=== PATIENT | female | born 1990 | race Caucasian/White ===

== ENCOUNTER 2016-05-25 22:09 | Emergency (ER) | payer OTHER ==
[2016-05-25] MEDS ORDERED: SODIUM CHLORIDE 0.9% 1,000 ML IV STA (22:31)
[2016-05-25 22:46] LABS: Basophils # (A) 0.1 k/uL (0-0.2); Basophils % (A) 1 %; CH 32.4; CHCM 32.1; Eosinophils # (A) 0.6 k/uL (0-0.7); Eosinophils % (A) 5 %; HDW 2.03; HGB 12.9 gm/dL (11.4-16.0); Luc # (Auto) 0.23; Luc % (Auto) 2; Lymphocytes # (A) 3.5 k/uL (1.0-4.8); Lymphocytes % (A) 34 %; MCH 32.7 pg (25.0-35.0); MCHC 32.3 g/dL (31.0-37.0); MCV 101.1 fL (80.0-100.0); Mean Platelet Volume 7.7; Monocytes # (A) 0.5 k/uL (0-1.0); Monocytes % (A) 4 %; Neutrophils # (A) 5.7 k/uL (1.3-7.7); Neutrophils % (A) 54 %; RBC 3.96 m/uL (3.80-5.40); RDW 12.6 % (11.5-15.5); WBC 10.5 k/uL (3.8-10.6); WBC (Perox) 10.98
[2016-05-25 22:54] LABS: HCG,Qualitative Serum Not Detected
[2016-05-25 22:55] LABS: Amorphous Sediment,Urine Occasional /hpf; Appearance,Urine Cloudy (Clear); Bacteria,Urine Rare /hpf; Bilirubin,Urine Negative (Negative); Glucose,Urine (UA) Negative (Negative); Ketones,Urine Trace (Negative); Leukocyte Esterase,Urine Negative (Negative); Mucus,Urine Many /hpf; Nitrite,Urine Negative (Negative); PH, Urine 5.5 (5.0-8.0); Particle Count 14524; Protein,Urine 1+ (Negative); RBC,Urine 4 /hpf (0-5); Specific Gravity,Urine 1.015 (1.001-1.035); Squamous Epithelial Cell,Urine 6 /hpf (0-4); UA Billing (MACRO vs. MICRO) MICRO; Urobilinogen,Urine <2.0 mg/dL (<2.0); WBC,Urine 3 /hpf (0-5)
[2016-05-25 22:56] LABS: Anion Gap 15 mmol/L; Blood Urea Nitrogen 9 mg/dL (7-17); Calcium 9.1 mg/dL (8.4-10.2); Carbon Dioxide 16 mmol/L (22-30); Chloride 106 mmol/L (98-107); Glucose 133 mg/dL (74-99); Non-African American GFR(MDRD) >60 (>60 ml/min/1.73 sqM); Potassium 3.9 mmol/L (3.5-5.1); Sodium 137 mmol/L (137-145)
--- NOTE | 2016-05-25 23:02 | ED ---
Seizure HPI - General Chief Complaint: Seizure Stated Complaint: poss seizure Time Seen by Provider: 05/25/16 22:22 Source: patient, EMS Mode of arrival: EMS - History of Present Illness Initial Comments: This 26-year-old white female presents with father with a complaint of a seizure. This apparently was witnessed by the father and it apparently lasted 3 minutes. She apparently was clenching her arms and legs and was unconscious during this episode. She apparently had one seizure last year. She had followed up with neurology afterwards and they were unsure of the exact cause. She apparently did bite her tongue minimally tonight and complains of some minimal pain. She is back to normal mentation at this time without any other complaints. She apparently does utilize Xanax for her anxiety. The mother apparently related to the paramedics that she abuses the Xanax. She also takes marijuana and took 2 tramadol tonight for a headache. She states that this was from an old prescription. She denies taking it regularly. She denies any other drug abuse. No other modifying factors. She does not take any antiseizure medications. - Related Data Home Medications Medication Instructions Recorded Confirmed ALPRAZolam [Xanax] 1 mg PO DAILY PRN 05/25/16 05/25/16 Aspirin/Acetaminophen/Caffeine 1 tab PO BID PRN 05/25/16 05/25/16 [Excedrin Migraine Caplet] Sertraline [Zoloft] 50 mg PO DAILY 05/25/16 05/25/16 traMADol HCL [Ultram] 50 mg PO DAILY PRN 05/25/16 05/25/16 Allergies Allergy/AdvReac Type Severity Reaction Status Date / Time promethazine HCl Allergy Hallucinati Verified 05/25/16 22:37 [From Phenergan] ons Review of Systems ROS Statement: Those systems with pertinent positive or pertinent negative responses have been documented in the HPI. ROS Other: All systems not noted in ROS Statement are negative. Past Medical History Past Medical History: Hyperlipidemia History of Any Multi-Drug Resistant Organisms: None Reported Past Surgical History: No Surgical Hx Reported Past Psychological History: Anxiety, Depression Smoking Status: Current every day smoker Past Alcohol Use History: Occasional Past Drug Use History: Marijuana General Exam - General Exam Comments Initial Comments: GENERAL: The patient is well nourished and well hydrated. VITAL SIGNS: Heart rate, blood pressure, respiratory rate reviewed as recorded in nurse's notes. EYES: Pupils are round and reactive. Extraocular movements are intact. No conjunctival / lid redness or swelling. ENT: No external evidence of injury, swelling, or ecchymosis. Airway is patent. Throat is clear. There are mild tongue abrasions bilaterally. NECK: Nontender. No swelling or evidence of injury. No subcutaneous emphysema. Trachea is midline. No thyroid mass. HEART: There is a tachycardic heart rate. Normal rhythm. Good peripheral pulses. LUNGS/CHEST: Breath sounds clear and equal bilaterally. No rales, rhonchi, or wheezes. No ecchymosis, subcutaneous emphysema, or tenderness. ABDOMEN: Abdomen soft without tenderness. No palpable masses or organomegaly. No peritoneal signs. No abdominal wall swelling or ecchymosis. EXTREMITIES: No extremity tenderness. Normal muscle tone and function. No thoracolumbar tenderness. NEUROLOGIC: Sensation is grossly intact. Cranial nerve exam reveals face is symmetrical, tongue is midline, speech is clear. SKIN: No abrasions or ecchymosis is noted. No induration or masses noted. PSYCHIATRIC: Alert and oriented. Appears anxious. Course Vital Signs 05/25/16 05/25/16 22:29 22:48 Temperature 98.1 F Pulse Rate 125 H 110 H Respiratory 18 18 Rate Blood Pressure 103/62 103/62 O2 Sat by Pulse 98 98 Oximetry Medical Decision Making - Medical Decision Making The patient was seen and examined. All diagnostics were reviewed. She was hydrated. Her laboratory came back showing a decreased CO2 at 16 consistent with dehydration. The remainder of the laboratories essentially within normal limits. She is back to her current normal mental status. It is felt as though she is stable for discharge. She does relate that her appetite has been decreased over the last month or so since she started Zoloft. She is instructed to follow-up with her primary doctor to see if this medicine should be changed. It is felt as though her seizures feeling may be related to taking the Ultram today. She is instructed to avoid this medication for the rest of her life. It is felt as though this is seizure provoking. She is counseled regarding seizures and thinks to avoid such as driving and the like. It is also felt as though she may benefit from following up with a neurologist again. She states that his been several years since she saw a neurologist. She is also counseled regarding Xanax use versus abuse. She is counseled regarding fluid hydration and leaves in no identifiable distress. - Lab Data Result diagrams: 05/25/16 22:25 05/25/16 22:25 Lab Results 05/25/16 05/25/16 05/25/16 Range/Units 22:25 22:25 22:36 WBC 10.5 (3.8-10.6) k/uL RBC 3.96 (3.80-5.40) m/uL Hgb 12.9 (11.4-16.0) gm/dL Hct 40.0 (34.0-46.0) % MCV 101.1 H (80.0-100.0) fL MCH 32.7 (25.0-35.0) pg MCHC 32.3 (31.0-37.0) g/dL RDW 12.6 (11.5-15.5) % Plt Count 253 (150-450) k/uL Neutrophils % 54 % Lymphocytes % 34 % Monocytes % 4 % Eosinophils % 5 % Basophils % 1 % Neutrophils # 5.7 (1.3-7.7) k/uL Lymphocytes # 3.5 (1.0-4.8) k/uL Monocytes # 0.5 (0-1.0) k/uL Eosinophils # 0.6 (0-0.7) k/uL Basophils # 0.1 (0-0.2) k/uL Sodium 137 (137-145) mmol/L Potassium 3.9 (3.5-5.1) mmol/L Chloride 106 (98-107) mmol/L Carbon Dioxide 16 L (22-30) mmol/L Anion Gap 15 mmol/L BUN 9 (7-17) mg/dL Creatinine 0.75 (0.52-1.04) mg/dL Est GFR (MDRD) Af Amer >60 (>60 ml/min/1.73 sqM) Est GFR (MDRD) Non-Af >60 (>60 ml/min/1.73 sqM) Glucose 133 H (74-99) mg/dL Calcium 9.1 (8.4-10.2) mg/dL HCG, Qual Not Detected Urine Color Yellow Urine Appearance Cloudy H (Clear) Urine pH 5.5 (5.0-8.0) Ur Specific [place] 1.015 (1.001-1.035) Urine Protein 1+ H (Negative) Urine Glucose (UA) Negative (Negative) Urine Ketones Trace H (Negative) Urine Blood Negative (Negative) Urine Nitrate Negative (Negative) Urine Bilirubin Negative (Negative) Urine Urobilinogen <2.0 (<2.0) mg/dL Ur Leukocyte Esterase Negative (Negative) Urine RBC 4 (0-5) /hpf Urine WBC 3 (0-5) /hpf Ur Squamous Epith Cells 6 H (0-4) /hpf Amorphous Sediment Occasional H (None) /hpf Urine Bacteria Rare H (None) /hpf Hyaline Casts 11 H (0-2) /lpf Urine Mucus Many H (None) /hpf Urine Opiates Screen Not Detected (NotDetected) Ur Oxycodone Screen Not Detected (NotDetected) Urine Methadone Screen Not Detected (NotDetected) Ur Propoxyphene Screen Not Detected (NotDetected) Ur Barbiturates Screen Not Detected (NotDetected) U Tricyclic Antidepress Not Detected (NotDetected) Ur Phencyclidine Scrn Not Detected (NotDetected) Ur Amphetamines Screen Not Detected (NotDetected) U Methamphetamines Scrn Not Detected (NotDetected) U Benzodiazepines Scrn Detected H (NotDetected) Urine Cocaine Screen Not Detected (NotDetected) U Marijuana (THC) Screen Detected H (NotDetected) Disposition Clinical Impression: Seizure, Dehydration, Abrasion of tongue Disposition: HOME SELF-CARE Condition: Good Instructions: Recurrent Seizures in Adults (ED), Dehydration (ED) Referrals: Tae Dial MD [Primary Care Provider] - 1-2 days Dilma Veras MD [STAFF PHYSICIAN] - 1-2 days Time of Disposition: 23:43
[2016-05-25 23:42] VITALS: BP 95/66; PULSE 80; RESP 16; TEMP 98.5
--- NOTE | 2016-05-25 23:53 | ED ---
Medical Decision Making - Lab Data Result diagrams: 05/25/16 22:25 05/25/16 22:25 Lab Results 05/25/16 05/25/16 05/25/16 Range/Units 22:25 22:25 22:36 WBC 10.5 (3.8-10.6) k/uL RBC 3.96 (3.80-5.40) m/uL Hgb 12.9 (11.4-16.0) gm/dL Hct 40.0 (34.0-46.0) % MCV 101.1 H (80.0-100.0) fL MCH 32.7 (25.0-35.0) pg MCHC 32.3 (31.0-37.0) g/dL RDW 12.6 (11.5-15.5) % Plt Count 253 (150-450) k/uL Neutrophils % 54 % Lymphocytes % 34 % Monocytes % 4 % Eosinophils % 5 % Basophils % 1 % Neutrophils # 5.7 (1.3-7.7) k/uL Lymphocytes # 3.5 (1.0-4.8) k/uL Monocytes # 0.5 (0-1.0) k/uL Eosinophils # 0.6 (0-0.7) k/uL Basophils # 0.1 (0-0.2) k/uL Sodium 137 (137-145) mmol/L Potassium 3.9 (3.5-5.1) mmol/L Chloride 106 (98-107) mmol/L Carbon Dioxide 16 L (22-30) mmol/L Anion Gap 15 mmol/L BUN 9 (7-17) mg/dL Creatinine 0.75 (0.52-1.04) mg/dL Est GFR (MDRD) Af Amer >60 (>60 ml/min/1.73 sqM) Est GFR (MDRD) Non-Af >60 (>60 ml/min/1.73 sqM) Glucose 133 H (74-99) mg/dL Calcium 9.1 (8.4-10.2) mg/dL HCG, Qual Not Detected Urine Color Yellow Urine Appearance Cloudy H (Clear) Urine pH 5.5 (5.0-8.0) Ur Specific [place] 1.015 (1.001-1.035) Urine Protein 1+ H (Negative) Urine Glucose (UA) Negative (Negative) Urine Ketones Trace H (Negative) Urine Blood Negative (Negative) Urine Nitrate Negative (Negative) Urine Bilirubin Negative (Negative) Urine Urobilinogen <2.0 (<2.0) mg/dL Ur Leukocyte Esterase Negative (Negative) Urine RBC 4 (0-5) /hpf Urine WBC 3 (0-5) /hpf Ur Squamous Epith Cells 6 H (0-4) /hpf Amorphous Sediment Occasional H (None) /hpf Urine Bacteria Rare H (None) /hpf Hyaline Casts 11 H (0-2) /lpf Urine Mucus Many H (None) /hpf Urine Opiates Screen Not Detected (NotDetected) Ur Oxycodone Screen Not Detected (NotDetected) Urine Methadone Screen Not Detected (NotDetected) Ur Propoxyphene Screen Not Detected (NotDetected) Ur Barbiturates Screen Not Detected (NotDetected) U Tricyclic Antidepress Not Detected (NotDetected) Ur Phencyclidine Scrn Not Detected (NotDetected) Ur Amphetamines Screen Not Detected (NotDetected) U Methamphetamines Scrn Not Detected (NotDetected) U Benzodiazepines Scrn Detected H (NotDetected) Urine Cocaine Screen Not Detected (NotDetected) U Marijuana (THC) Screen Detected H (NotDetected) Disposition Clinical Impression: Seizure, Dehydration, Abrasion of tongue Disposition: HOME SELF-CARE Condition: Good Instructions: Dehydration (ED), Recurrent Seizures in Adults (ED) Prescriptions: Ondansetron [Zofran ODT] 8 mg PO Q8HR PRN #20 tab PRN Reason: Nausea Referrals: Tae Dial MD [Primary Care Provider] - 1-2 days Dilma Veras MD [STAFF PHYSICIAN] - 1-2 days
== END 2016-05-25 23:55 | disposition home or self-care (01) ==
LOC: EC 22:09
DX: R56.9 Unspecified convulsions (principal); E86.0 Dehydration; S00.512A Abrasion of oral cavity, initial encounter; X58.XXXA Exposure to other specified factors, initial encounter; F41.9 Anxiety disorder, unspecified; F32.9 Major depressive disorder, single episode, unspecified; F12.90 Cannabis use, unspecified, uncomplicated; F11.90 Opioid use, unspecified, uncomplicated; Z79.899 Other long term (current) drug therapy; Z88.8 Allergy status to other drugs, medicaments and biological substances; F17.200 Nicotine dependence, unspecified, uncomplicated
CPT/HCPCS: 36415; 80048; 80306; 81001; 84703; 85025; 96360; 99285

== ENCOUNTER 2019-01-03 00:37 | Emergency (ER) | payer OTHER ==
[2019-01-03 00:49] VITALS: RESP 18
[2019-01-03] MEDS ORDERED: KETOROLAC 30 MG/ML 1 ML VIAL IM STA (00:59)
[2019-01-03] MEDS ORDERED: HYDROcodone/APAP 5-325MG 1 EACH TAB PO STA (01:00)
--- NOTE | 2019-01-03 01:35 | XR ---
History: ITS.REASON XR Reason: Pain Exam: XR RIGHT WRIST 3 views Comparison: None available FINDINGS: Acute distal radius metaphysis fracture enters the distal radial ulnar joint without dislocation. Dorsal impaction and volar distraction results in approximately 20 of dorsal angulation of the distal fragment. Soft tissue swelling, deformity. IMPRESSION: Acute distal radius metaphysis fracture enters the distal radial ulnar joint without dislocation. Dorsal impaction and volar distraction results in approximately 20 of dorsal angulation/tilt of the distal fragment. Soft tissue swelling, deformity.
[2019-01-03] MEDS ORDERED: IBUPROFEN 600 MG STARTER PACK 4 TAB BTL PO STA (01:52)
[2019-01-03] MEDS ORDERED: ACET/COD 300 MG/30 MG STARTER PACK 6 TAB BTL PO STA (01:52)
--- NOTE | 2019-01-03 01:52 | ED ---
Upper Extremity HPI - General Chief Complaint: Extremity Injury, Upper Stated Complaint: wrist injury Time Seen by Provider: 01/03/19 00:56 Source: patient Mode of arrival: ambulatory Limitations: no limitations - History of Present Illness Initial Comments: 28-year-old female patient presents to the emergency department today for evaluation of right wrist pain. Patient states approximately 5 hours ago she was playing with some kittens when she over stepped to avoid stepping on one and fell backwards. Patient states she reached her hand out behind her injuring the wrist. Patient states she did try to wrap it with an inder wrap and rest it, but the pain continued to worsen. She denies hitting her head or losing consciousness during the fall. She denies any other injuries. Denies previous injury to this wrist. Denies numbness or tingling to the hand. Patient denies any headache, neck pain, back pain, chest pain, shortness of breath, dizziness, weakness, abdominal pain, nausea, vomiting, or difficulties with bowel movements or urination. - Related Data Home Medications Medication Instructions Recorded Confirmed ALPRAZolam [Xanax] 1 mg PO DAILY PRN 05/25/16 01/03/19 Previous Rx's Medication Instructions Recorded Acetaminophen-Codeine 300-30mg 1 tab PO Q6H PRN #12 tablet 01/03/19 [Tylenol #3] Ibuprofen [Motrin] 600 mg PO Q8HR PRN #30 tab 01/03/19 Allergies Allergy/AdvReac Type Severity Reaction Status Date / Time promethazine HCl Allergy Hallucinati Verified 05/25/16 22:37 [From Phenergan] ons Review of Systems ROS Statement: Those systems with pertinent positive or pertinent negative responses have been documented in the HPI. ROS Other: All systems not noted in ROS Statement are negative. Past Medical History Past Medical History: Hyperlipidemia History of Any Multi-Drug Resistant Organisms: None Reported Past Surgical History: No Surgical Hx Reported Past Psychological History: Anxiety, Depression Smoking Status: Current every day smoker Past Alcohol Use History: Occasional Past Drug Use History: Marijuana General Exam Limitations: no limitations General appearance: alert, in no apparent distress, other (This is a well- developed, well-nourished adult female patient in no acute distress. Vital signs upon presentation are temperature 98.3F, pulse 94, respirations 18, blood pressure 118/69, pulse ox 100% on room air.) Eye exam: Present: normal appearance, PERRL, EOMI. Absent: scleral icterus, conjunctival injection, periorbital swelling ENT exam: Present: normal exam, normal oropharynx, mucous membranes moist Respiratory exam: Present: normal lung sounds bilaterally. Absent: respiratory distress, wheezes, rales, rhonchi, stridor Cardiovascular Exam: Present: regular rate, normal rhythm, normal heart sounds. Absent: systolic murmur, diastolic murmur, rubs, gallop, clicks GI/Abdominal exam: Present: soft, normal bowel sounds. Absent: distended, tenderness, guarding, rebound, rigid Extremities exam: Present: full ROM, tenderness (Tenderness noted over the distal radial and ulnar aspect of the right forearm.), normal capillary refill, other (There is obvious deformity noted to the right distal radius. Skin to the hand is pink, warm, dry. Cap refills less than 3 seconds. Radial pulses 2+ and equal bilaterally.). Absent: normal inspection, pedal edema, joint swelling, calf tenderness Neurological exam: Present: alert, oriented X3, CN II-XII intact Psychiatric exam: Present: normal affect, normal mood Skin exam: Present: warm, dry, intact, normal color. Absent: rash Course Vital Signs 01/03/19 01/03/19 00:46 02:45 Temperature 98.3 F 98 F Pulse Rate 94 96 Respiratory 18 18 Rate Blood Pressure 118/69 126/72 O2 Sat by Pulse 100 100 Oximetry Medical Decision Making - Medical Decision Making 28 year-old female patient presents to the emergency department today for evaluation of right wrist injury. Physical examination did reveal swelling and deformity noted over the right distal radius. Neurovascular status is intact. X-ray was obtained and did show an angulated nondisplaced fracture of the right distal radius. Patient was placed in an OCL splint. Given a sling. She was given starter packs of pain medication to take home. She is given prescriptions for pain management. She is instructed to follow-up with origination specialist for further evaluation as soon as possible. She is instructed to follow-up with her primary care physician for recheck in 1-2 days. Return parameters custody temperature verbalizes understanding and agrees with this plan. - Radiology Data Radiology results: report reviewed, image reviewed 3 views of the right wrist are obtained. Report reviewed in its entirety. Impression by Dr. Mendoza shows acute distal radius metaphysis fracture enters distal radial ulnar joint without dislocation. Dorsal impaction a volar distraction results in approximately 20 of dorsal angulation/tilt of the distal fragments. Soft tissue swelling, deformity. Disposition Clinical Impression: Fracture of right distal radius Disposition: HOME SELF-CARE Condition: Good Instructions (If sedation given, give patient instructions): Wrist Fracture in Adults (ED), Splint Care (ED) Additional Instructions: Take medication as directed for pain. Apply ice 20 minutes at a time at least 4 times daily. Keep wrist elevated. Follow up with origination specialist for further evaluation as soon as possible. Return to the emergency department immediately for any new, worsening, or concerning symptoms. Prescriptions: Ibuprofen [Motrin] 600 mg PO Q8HR PRN #30 tab PRN Reason: Pain Acetaminophen-Codeine 300-30mg [Tylenol #3] 1 tab PO Q6H PRN #12 tablet PRN Reason: Pain Is patient prescribed a controlled substance at d/c from ED?: Yes When asked, does pt state using other controlled substances?: No If prescribed controlled substance>3 days was MAPS reviewed?: Prescribed <3 Days If opioid is for acute pain is fill amount 7 days or less?: Yes If Rx opioid, was Start Talking consent form obtained?: Yes Referrals: Tae Dial MD [Primary Care Provider] - 1-2 days Uday Hill MD [STAFF PHYSICIAN] - 1-2 days Time of Disposition: 01:52
[2019-01-03 02:57] VITALS: BP 126/72; PULSE 96; TEMP 98
== END 2019-01-03 02:45 | disposition home or self-care (01) ==
LOC: EC 00:37
DX: S52.501A Unspecified fracture of the lower end of right radius, initial encounter for closed fracture (principal); F41.9 Anxiety disorder, unspecified; F32.9 Major depressive disorder, single episode, unspecified; F17.200 Nicotine dependence, unspecified, uncomplicated; Z88.8 Allergy status to other drugs, medicaments and biological substances; W01.0XXA Fall on same level from slipping, tripping and stumbling without subsequent striking against object, initial encounter; Y92.009 Unspecified place in unspecified non-institutional (private) residence as the place of occurrence of the external cause
CPT/HCPCS: 73110; 99283; 29125; 96372; L1830; J1885

== ENCOUNTER 2019-01-05 13:58 | Day surgery (SDC) | payer OTHER ==
[2019-01-05] MEDS ORDERED: LACTATED RINGERS 1,000 ML IV ONE (14:55)
[2019-01-05] MEDS ORDERED: PROPOFOL 10 MG/ML 20 ML VIAL IV ONE (16:02)
[2019-01-05] MEDS ORDERED: MIDAZOLAM 2 MG/2 ML VIAL ONE (16:02)
[2019-01-05] MEDS ORDERED: fentaNYL (PF) 50 MCG/ML 2 ML AMP ONE (16:02)
[2019-01-05] MEDS ORDERED: SUCCINYLCHOLINE CHLORIDE 100 MG/5 ML SYR IV ONE (16:02)
[2019-01-05] MEDS ORDERED: ceFAZolin 1,000 MG VIAL ONE (16:02)
[2019-01-05] MEDS ORDERED: DEXAMETHASONE SOD PHOSPHATE 4 MG/ML 1 ML VIAL ONE (16:02)
[2019-01-05] MEDS ORDERED: LIDOCAINE 1% INJ 10MG/ML (20 ML MDV) ONE (16:02)
[2019-01-05] MEDS ORDERED: ROPIVACAINE 5 MG/ML 30 ML VIAL ONE (16:02)
[2019-01-05] MEDS ORDERED: BUPIVACAIN-EPI 0.25%-1:200,000 30 ML VIAL SQ ONE ×2 (16:31→16:48)
[2019-01-05 17:13] VITALS: RESP 16; TEMP 98
--- NOTE | 2019-01-05 18:20 | XR ---
EXAMINATION TYPE: XR wrist complete RT DATE OF EXAM: 01/05/2019 COMPARISON: 01/03/2019 HISTORY: Surgery TECHNIQUE: 6 views FINDINGS: 6 fluoroscopic images were obtained and show placement of 3 pins fixing the transverse frac ture of the distal radial metaphysis in anatomic position. A total of 56 seconds of fluoroscopy time was recorded for the procedure. IMPRESSION: Satisfactory fixation. No complicating process seen. There is satisfactory reduction comp ared to exam of 01/03/2019.
--- NOTE | 2019-01-05 18:24 | P.OP ---
Date of Procedure: 01/05/19 Preoperative Diagnosis: Displaced extra-articular right distal radius fracture Postoperative Diagnosis: Displaced extra-articular right distal radius fracture Procedure(s) Performed: Closed reduction and percutaneous pinning of displaced, extra-articular right distal radius fracture (2 parts) Implants: 0.062 K-wires (3) Anesthesia: MAC, regional, local Surgeon: Logan Phillips Seam Finisher #1: Marie Diallo Estimated Blood Loss (ml): 0 Condition: stable Disposition: PACU Indications for Procedure: The patient is a 28-year-old female who sustained a displaced right distal radius fracture after stumbling to avoid stepping on her kitten. Treatment options (and associated risks and benefits) were discussed in the office. Surgical stabilization was recommended. In preop, the patient denied any additional questions or concerns and wished to proceed with surgery. Consent forms were signed. The operative site was confirmed and marked. Description of Procedure: The patient was administered a regional nerve block by the anesthesia team and was then brought to the operating suite. She was positioned supine with the operative limb on an arm board. All bony prominences were well-padded. Monitored anesthesia was administered uneventfully. Prophylactic IV antibiotics were administered. A tourniquet was placed on the right arm but was not inflated. The arm was then prepped and draped in standard, sterile fashion. A t imeout was performed, confirming patient identifiers, the operative side, the site and the procedure to be performed: all team members expressed agreement. The fracture was evaluated on multiple views using intraoperative fluoroscopy. There was moderate dorsal angulation and mild shortening of the radial column. A closed reduction maneuver was performed, using a combination of palmar translation and ulnar deviation. Repeat imaging demonstrated excellent initial alignment. A 0.062 K wire was percutaneously inserted into the radial styloid, taking care to avoid the first dorsal compartment tendons. With the fracture held reduced, this was advanced across the fracture site and into the metaphysis. A second K wire was inserted in a similar fashion for additional stabilization and rotat ional control. When assessed on imaging, there was mild residual dorsal angulation. A third K wire was inserted percutaneously dorsally, taking care to protect the extensor tendons. This was used as a joystick and good confucianism of volar tilt was achieved. This was advanced to, but not through, the volar cortex. Final x-rays were obtained which revealed anatomic reduction of the fracture. T he wrist was then stressed under live fluoroscopy - no motion was appreciated at the fracture site. The pins were cut and covered with Jurgan balls. Local anesthetic with epinephrine was injected in a ring block around the wrist for adjunctive postoperative pain control and hemostasis. A sterile dressing was applied followed by a resting volar plaster splint. All sponge, needle and instrument counts were correct at the end of the case. The patient tolerated the procedure well and was taken to the recovery room in stable condition.
[2019-01-05 18:36] VITALS: BP 115/83; PULSE 89
--- NOTE | 2019-01-06 11:50 | FL ---
Fluoroscopy INDICATION: Pain FINDINGS: Fluoroscopy time: 56 seconds. Images obtained: 0. IMPRESSIONS: 1. Documentation of fluoroscopy.
--- NOTE | 2019-01-06 12:02 | P.ANPRN ---
Procedure Note - Anesthesia - Nerve Block Performed Right Supraclavicular Single Time Out Performed: Yes Date of Procedure: 11/04/18 Procedure Start Time: 14:39 Procedure Stop Time: 14:45 Location of Patient Procedure: PreOp Indication: Acute Post-Operative Pain, Requested by Surgeon Sedation Type: Sedate with meaningful contact maintained Preparation: Sterile Prep Position: Supine Needle Types: Pajunk Needle Gauge: 21 Ultrasound used to visualize needle placement: Yes Ultrasound used to observe medication spread: Yes Injectate: 0.5% Ropivacaine (see comment for volume) (ropi .5% 25cc plus dexamethasone 4 mg) Blood Aspirated: No Pain Paresthesia on Injection Noted: No Resistance on Injection: Normal Image Stored and Saved: Yes Events: Uneventful and Well Tolerated
== END 2019-01-05 19:00 | disposition home or self-care (01) ==
LOC: OR 13:58
PROVIDERS: ATTEND Orthopaedic Surgery
DX: S52.551A Other extraarticular fracture of lower end of right radius, initial encounter for closed fracture (principal); W01.0XXA Fall on same level from slipping, tripping and stumbling without subsequent striking against object, initial encounter; F17.210 Nicotine dependence, cigarettes, uncomplicated; F41.9 Anxiety disorder, unspecified; Z79.899 Other long term (current) drug therapy; Z79.891 Long term (current) use of opiate analgesic; Z88.8 Allergy status to other drugs, medicaments and biological substances
CPT/HCPCS: 25606; 81025; 64415; 73110; J2250; J1100; J0690; J2001; J3010; J2795; J0330; J2704; 64413

== ENCOUNTER 2020-07-09 10:05 | Inpatient (IN) | payer OTHER ==
[2020-07-09] MEDS ORDERED: ONDANSETRON 4 MG/2 ML VIAL IVP STA (10:59)
[2020-07-09] MEDS ORDERED: HYDROmorphone 0.5 MG/0.5 ML SYRINGE IVP STA ×2 (10:59→11:49)
[2020-07-09] MEDS ORDERED: KETOROLAC 15 MG/ML 1 ML VIAL IVP STA (10:59)
[2020-07-09] MEDS ORDERED: SODIUM CHLORIDE 0.9% 1,000 ML IV STA (10:59)
[2020-07-09 11:18] LABS: Appearance,Urine Turbid (Clear); Bacteria,Urine Occasional /hpf; Bilirubin,Urine Negative (Negative); Blood,Urine Moderate (Negative); Color,Urine Yellow; Glucose,Urine (UA) Negative (Negative); Hyaline Casts,Urine 11 /lpf (0-2); Ketones,Urine Trace (Negative); Leukocyte Esterase,Urine Large (Negative); Mucus,Urine Many /hpf; Nitrite,Urine Positive (Negative); PH, Urine 5.5 (5.0-8.0); Protein,Urine 2+ (Negative); RBC,Urine 40 /hpf (0-5); Specific Gravity,Urine 1.024 (1.001-1.035); Squamous Epithelial Cell,Urine 10 /hpf (0-4); Urobilinogen,Urine <2.0 mg/dL (<2.0); WBC,Urine >182 /hpf (0-5)
[2020-07-09 11:19] LABS: Basophils # (A) 0.1 k/uL (0-0.2); Basophils % (A) 0 %; Eosinophils # (A) 0.4 k/uL (0-0.7); Eosinophils % (A) 2 %; HCT 42.5 % (34.0-46.0); HGB 13.6 gm/dL (11.4-16.0); Lymphocytes # (A) 1.4 k/uL (1.0-4.8); Lymphocytes % (A) 7 %; MCH 32.2 pg (25.0-35.0); MCV 100.4 fL (80.0-100.0); Mean Platelet Volume 7.7; Monocytes % (A) 5 %; Neutrophils # (A) 17.1 k/uL (1.3-7.7); Neutrophils % (A) 86 %; Platelet Count 234 k/uL (150-450); RBC 4.24 m/uL (3.80-5.40); RDW 13.3 % (11.5-15.5)
[2020-07-09] MEDS ORDERED: SODIUM CHLORIDE 0.9% 1,000 ML IV ONE (11:28)
[2020-07-09 11:32] LABS: ALT 20 U/L (4-34); AST 37 U/L (14-36); African American GFR (CKD) >90 (>60 ml/min/1.73 sqM); Albumin 4.5 g/dL (3.5-5.0); Alkaline Phosphatase 58 U/L (38-126); Anion Gap 13 mmol/L; Blood Urea Nitrogen 22 mg/dL (7-17); Calcium 9.6 mg/dL (8.4-10.2); Carbon Dioxide 19 mmol/L (22-30); Chloride 101 mmol/L (98-107); Glucose 109 mg/dL (74-99); Lipase 12 U/L (23-300); Non-African American GFR(CKD) >90 (>60 ml/min/1.73 sqM); Sodium 133 mmol/L (137-145); Total Bilirubin 0.8 mg/dL (0.2-1.3); Total Protein 7.5 g/dL (6.3-8.2)
[2020-07-09] MEDS ORDERED: ACETAMINOPHEN TAB 325 MG TAB PO STA (11:42)
[2020-07-09] MEDS ORDERED: LORazepam 2 MG/ML INJ IV STA (11:48)
[2020-07-09 11:50] LABS: Potassium 5.1 mmol/L (3.5-5.1)
--- NOTE | 2020-07-09 11:51 | ED ---
Abdominal Pain HPI - General Source: patient, family Mode of arrival: ambulatory Limitations: no limitations <Lillian Hobbs - Last Filed: 07/09/20 14:07> <Holly Scott - Last Filed: 07/15/20 23:27> - General Chief Complaint: Abdominal Pain Stated Complaint: abd pain, vomiting Time Seen by Provider: 07/09/20 10:29 - History of Present Illness Initial Comments: 22-year-old female patient presents to the emergency department today for evaluation of right sided abdominal pain. Patient states the pain started a couple of days ago. States she has had burning and frequency of urination for the last 5 days. States she has felt feverish and chilled. States she has had nausea denies vomiting. Denies any abnormal vaginal bleeding or discharge. States she had a negative test at home. Denies history of abdominal surgery. Patient denies any recent rash, fever, chills, cough, shortness of breath, chest pain, diarrhea, constipation, back pain, numbness, tingling, dizziness, weakness, headache, visual changes, or any other complaints. (Lillian Hobbs) - Related Data Home Medications Medication Instructions Recorded Confirmed ALPRAZolam [Xanax] 0.5 mg PO BID 07/09/20 07/09/20 Aspirin/Acetaminophen/Caffeine 1 tab PO Q12H PRN 07/09/20 07/09/20 [Excedrin Migraine Caplet] Cholecalciferol [Vitamin D3 (25 50 mcg PO DAILY 07/09/20 07/09/20 Mcg = 1000 Iu)] Citalopram Hydrobromide [CeleXA] 40 mg PO DAILY 07/09/20 07/09/20 lamoTRIgine [LaMICtal] 100 mg PO HS 07/09/20 07/09/20 Previous Rx's Medication Instructions Recorded Cefuroxime Axetil [Ceftin] 500 mg PO BID 10 Days #20 tab 07/13/20 Allergies Allergy/AdvReac Type Severity Reaction Status Date / Time promethazine HCl Allergy Hallucinati Verified 07/09/20 11:40 [From Phenergan] ons tramadol AdvReac possible Verified 07/12/20 13:17 seizure Review of Systems ROS Other: All systems not noted in ROS Statement are negative. <Lillian Hobbs - Last Filed: 07/09/20 14:07> ROS Other: All systems not noted in ROS Statement are negative. <Holly Scott - Last Filed: 07/15/20 23:27> ROS Statement: Those systems with pertinent positive or pertinent negative responses have been documented in the HPI. Past Medical History Past Medical History: Hyperlipidemia History of Any Multi-Drug Resistant Organisms: None Reported Past Surgical History: No Surgical Hx Reported Additional Past Surgical History / Comment(s): wrist fx Past Psychological History: Anxiety, Depression Smoking Status: Current every day smoker Past Alcohol Use History: Occasional Past Drug Use History: Marijuana <Lillian Hobbs - Last Filed: 07/09/20 14:07> General Exam Limitations: no limitations General appearance: alert, in no apparent distress, other (This is a well- developed, well-nourished adult female patient in no acute distress. Vital signs upon presentation are temperature 100.3F, pulse 142, respirations 18, blood pressure 91/60, pulse ox 100% on room air) Eye exam: Present: normal appearance, PERRL, EOMI. Absent: scleral icterus, conjunctival injection, periorbital swelling ENT exam: Present: normal exam, normal oropharynx, mucous membranes moist Respiratory exam: Present: normal lung sounds bilaterally. Absent: respiratory distress, wheezes, rales, rhonchi, stridor Cardiovascular Exam: Present: regular rate, normal rhythm, normal heart sounds. Absent: systolic murmur, diastolic murmur, rubs, gallop, clicks GI/Abdominal exam: Present: soft, tenderness (Right-sided), normal bowel sounds. Absent: distended, guarding, rebound, rigid Back exam: Present: normal inspection, CVA tenderness (R). Absent: CVA tenderness (L) Neurological exam: Present: alert, oriented X3, CN II-XII intact Psychiatric exam: Present: normal affect, normal mood Skin exam: Present: warm, dry, intact, normal color. Absent: rash <Lillian Hobbs - Last Filed: 07/09/20 14:07> Course Vital Signs 07/09/20 07/09/20 07/09/20 10:12 11:43 13:18 Temperature 98.6 F 100.3 F H 99.2 F Pulse Rate 142 H 112 H 113 H Respiratory 18 16 18 Rate Blood Pressure 91/60 90/54 92/53 O2 Sat by Pulse 100 100 99 Oximetry 07/09/20 15:30 Temperature 101.3 F H Pulse Rate 99 Respiratory 16 Rate Blood Pressure 90/54 O2 Sat by Pulse Oximetry Medical Decision Making - Lab Data Result diagrams: 07/09/20 11:06 07/09/20 11:06 <Lillian Hobbs - Last Filed: 07/09/20 14:07> - Lab Data Result diagrams: 07/13/20 05:45 07/13/20 05:45 <Holly Scott - Last Filed: 07/15/20 23:27> - Medical Decision Making 30-year-old female patient presents to the emergency department for evaluation of right flank pain and abdominal pain. Chest reports nausea vomiting and fevers. Labs reviewed and did reveal white blood cell count at 20.0, neutroph ils 17.1, urinalysis showed a turbid appearance with 2+ protein, trace ketones, moderate blood, positive nitrite, large leukocyte esterase, 40 red blood cells, greater than 182 white blood cells, many white blood cell clumps, 10 squamous epithelial cells, occasional bacteria, 11 hyaline casts, many mucus. HCG was negative. Vital signs showed tachycardia with temperature elevation upon arrival. She also had borderline blood pressures in the 90s systolic. She was started on Rocephin given IV fluids. Given Tylenol. She'll be admitted to the hospital for pyelonephritis and sepsis. Dr. Dial is accepting. Case discussed with my attending Dr. Scott. (Lillian Hobbs) I was available for consultation in the emergency department. The history and physical exam were done by the midlevel provider. I was consulted for this patients care. I reviewed the case with the midlevel provider and based on their presentation of the patient, I agree with the assessment, medical decision making and plan of care as documented. Chart was dictated using [employer] dictation software. Attempts were made to correct any dictation errors however some typographical errors may persist. (Holly Scott) - Lab Data Lab Results 07/09/20 07/09/20 07/09/20 Range/Units 10:53 10:53 11:06 WBC 20.0 H (3.8-10.6) k/uL RBC 4.24 (3.80-5.40) m/uL Hgb 13.6 (11.4-16.0) gm/dL Hct 42.5 (34.0-46.0) % MCV 100.4 H (80.0-100.0) fL MCH 32.2 (25.0-35.0) pg MCHC 32.0 (31.0-37.0) g/dL RDW 13.3 (11.5-15.5) % Plt Count 234 (150-450) k/uL MPV 7.7 Neutrophils % 86 % Lymphocytes % 7 % Monocytes % 5 % Eosinophils % 2 % Basophils % 0 % Neutrophils # 17.1 H (1.3-7.7) k/uL Lymphocytes # 1.4 (1.0-4.8) k/uL Monocytes # 1.0 (0-1.0) k/uL Eosinophils # 0.4 (0-0.7) k/uL Basophils # 0.1 (0-0.2) k/uL Sodium (137-145) mmol/L Potassium (3.5-5.1) mmol/L Chloride (98-107) mmol/L Carbon Dioxide (22-30) mmol/L Anion Gap mmol/L BUN (7-17) mg/dL Creatinine (0.52-1.04) mg/dL Est GFR (CKD-EPI)AfAm (>60 ml/min/1.73 sqM) Est GFR (CKD-EPI)NonAf (>60 ml/min/1.73 sqM) Glucose (74-99) mg/dL Plasma Lactic Acid Yohan (0.7-2.0) mmol/L Calcium (8.4-10.2) mg/dL Total Bilirubin (0.2-1.3) mg/dL AST (14-36) U/L ALT (4-34) U/L Alkaline Phosphatase (38-126) U/L Total Protein (6.3-8.2) g/dL Albumin (3.5-5.0) g/dL Globulin g/dL Albumin/Globulin Ratio Lipase (23-300) U/L HCG, Qual Urine Color Yellow Urine Appearance Turbid H (Clear) Urine pH 5.5 (5.0-8.0) Ur Specific [place] 1.024 (1.001-1.035) Urine Protein 2+ H (Negative) Urine Glucose (UA) Negative (Negative) Urine Ketones Trace H (Negative) Urine Blood Moderate H (Negative) Urine Nitrite Positive H (Negative) Urine Bilirubin Negative (Negative) Urine Urobilinogen <2.0 (<2.0) mg/dL Ur Leukocyte Esterase Large H (Negative) Urine RBC 40 H (0-5) /hpf Urine WBC >182 H (0-5) /hpf Urine WBC Clumps Many H (None) /hpf Ur Squamous Epith Cells 10 H (0-4) /hpf Urine Bacteria Occasional H (None) /hpf Hyaline Casts 11 H (0-2) /lpf Urine Mucus Many H (None) /hpf Urine HCG, Qual Not Detected (Not Detectd) Coronavirus (PCR) (Not Detectd) 07/09/20 07/09/20 07/09/20 Range/Units 11:06 11:06 12:16 WBC (3.8-10.6) k/uL RBC (3.80-5.40) m/uL Hgb (11.4-16.0) gm/dL Hct (34.0-46.0) % MCV (80.0-100.0) fL MCH (25.0-35.0) pg MCHC (31.0-37.0) g/dL RDW (11.5-15.5) % Plt Count (150-450) k/uL MPV Neutrophils % % Lymphocytes % % Monocytes % % Eosinophils % % Basophils % % Neutrophils # (1.3-7.7) k/uL Lymphocytes # (1.0-4.8) k/uL Monocytes # (0-1.0) k/uL Eosinophils # (0-0.7) k/uL Basophils # (0-0.2) k/uL Sodium 133 L (137-145) mmol/L Potassium 5.1 (3.5-5.1) mmol/L Chloride 101 (98-107) mmol/L Carbon Dioxide 19 L (22-30) mmol/L Anion Gap 13 mmol/L BUN 22 H (7-17) mg/dL Creatinine 0.80 (0.52-1.04) mg/dL Est GFR (CKD-EPI)AfAm >90 (>60 ml/min/1.73 sqM) Est GFR (CKD-EPI)NonAf >90 (>60 ml/min/1.73 sqM) Glucose 109 H (74-99) mg/dL Plasma Lactic Acid Yohan 1.1 (0.7-2.0) mmol/L Calcium 9.6 (8.4-10.2) mg/dL Total Bilirubin 0.8 (0.2-1.3) mg/dL AST 37 H (14-36) U/L ALT 20 (4-34) U/L Alkaline Phosphatase 58 (38-126) U/L Total Protein 7.5 (6.3-8.2) g/dL Albumin 4.5 (3.5-5.0) g/dL Globulin g/dL Albumin/Globulin Ratio Lipase 12 L (23-300) U/L HCG, Qual Urine Color Urine Appearance (Clear) Urine pH (5.0-8.0) Ur Specific [place] (1.001-1.035) Urine Protein (Negative) Urine Glucose (UA) (Negative) Urine Ketones (Negative) Urine Blood (Negative) Urine Nitrite (Negative) Urine Bilirubin (Negative) Urine Urobilinogen (<2.0) mg/dL Ur Leukocyte Esterase (Negative) Urine RBC (0-5) /hpf Urine WBC (0-5) /hpf Urine WBC Clumps (None) /hpf Ur Squamous Epith Cells (0-4) /hpf Urine Bacteria (None) /hpf Hyaline Casts (0-2) /lpf Urine Mucus (None) /hpf Urine HCG, Qual (Not Detectd) Coronavirus (PCR) Not Detected (Not Detectd) 07/09/20 07/10/20 07/10/20 Range/Units 20:20 16:00 16:00 WBC 19.4 H (3.8-10.6) k/uL RBC 3.18 L (3.80-5.40) m/uL Hgb 10.9 L (11.4-16.0) gm/dL Hct 32.1 L (34.0-46.0) % MCV 101.0 H (80.0-100.0) fL MCH 34.2 (25.0-35.0) pg MCHC 33.9 (31.0-37.0) g/dL RDW 12.6 (11.5-15.5) % Plt Count 161 (150-450) k/uL MPV 7.9 Neutrophils % 83 % Lymphocytes % 9 % Monocytes % 7 % Eosinophils % 1 % Basophils % 0 % Neutrophils # 16.0 H (1.3-7.7) k/uL Lymphocytes # 1.7 (1.0-4.8) k/uL Monocytes # 1.3 H (0-1.0) k/uL Eosinophils # 0.2 (0-0.7) k/uL Basophils # 0.0 (0-0.2) k/uL Sodium 136 L (137-145) mmol/L Potassium 3.9 (3.5-5.1) mmol/L Chloride 111 H (98-107) mmol/L Carbon Dioxide 19 L (22-30) mmol/L Anion Gap 6 mmol/L BUN 14 (7-17) mg/dL Creatinine 0.59 (0.52-1.04) mg/dL Est GFR (CKD-EPI)AfAm >90 (>60 ml/min/1.73 sqM) Est GFR (CKD-EPI)NonAf >90 (>60 ml/min/1.73 sqM) Glucose 99 (74-99) mg/dL Plasma Lactic Acid Yohan 0.6 L (0.7-2.0) mmol/L Calcium 7.7 L (8.4-10.2) mg/dL Total Bilirubin 0.3 (0.2-1.3) mg/dL AST 25 (14-36) U/L ALT 21 (4-34) U/L Alkaline Phosphatase 89 (38-126) U/L Total Protein 4.9 L (6.3-8.2) g/dL Albumin 2.8 L (3.5-5.0) g/dL Globulin 2.1 g/dL Albumin/Globulin Ratio 1.3 Lipase (23-300) U/L HCG, Qual Not Detected Urine Color Urine Appearance (Clear) Urine pH (5.0-8.0) Ur Specific [place] (1.001-1.035) Urine Protein (Negative) Urine Glucose (UA) (Negative) Urine Ketones (Negative) Urine Blood (Negative) Urine Nitrite (Negative) Urine Bilirubin (Negative) Urine Urobilinogen (<2.0) mg/dL Ur Leukocyte Esterase (Negative) Urine RBC (0-5) /hpf Urine WBC (0-5) /hpf Urine WBC Clumps (None) /hpf Ur Squamous Epith Cells (0-4) /hpf Urine Bacteria (None) /hpf Hyaline Casts (0-2) /lpf Urine Mucus (None) /hpf Urine HCG, Qual (Not Detectd) Coronavirus (PCR) (Not Detectd) Disposition Decision to Admit Reason: Admit from EC Decision Date: 07/09/20 Decision Time: 12:35 <Lillian Hobbs - Last Filed: 07/09/20 14:07> <Holly Scott - Last Filed: 07/15/20 23:27> Clinical Impression: Pyelonephritis, Sepsis Disposition: ADMITTED IP TO THIS HOSP Condition: Serious
[2020-07-09] MEDS ORDERED: NICOTINE 14MG/24HR PATCH TRANSDERM STA (12:03)
[2020-07-09] MEDS ORDERED: ONDANSETRON 4 MG/2 ML VIAL IVP PRN (12:31)
[2020-07-09] MEDS ORDERED: NALOXONE 0.4 MG/ML 1 ML VIAL IV PRN (12:31)
[2020-07-09] MEDS: SODIUM CHLORIDE 0.9% 1,000 ML IV SCH ×2 (13:30→23:50)
[2020-07-09] MEDS: HYDROmorphone 1 MG/ML 1 ML SYRINGE IVP PRN ×3 (15:20→21:13)
[2020-07-09] MEDS: ACETAMINOPHEN TAB 325 MG TAB PO PRN ×2 (15:42→19:45)
[2020-07-09] MEDS: KETOROLAC 15 MG/ML 1 ML VIAL IVP PRN (19:46)
[2020-07-09] MEDS ORDERED: LORazepam 1 MG TAB PO PRN (20:43)
[2020-07-09] MEDS ORDERED: SODIUM CHLORIDE 0.9% 1,000 ML IV SCH (23:45)
[2020-07-09] MEDS: ALPRAZolam 1 MG TAB PO PRN (23:49)
[2020-07-10] MEDS: KETOROLAC 15 MG/ML 1 ML VIAL IVP PRN ×4 (02:13→19:52)
[2020-07-10] MEDS: ACETAMINOPHEN TAB 325 MG TAB PO PRN ×3 (02:13→19:54)
[2020-07-10] MEDS: SODIUM CHLORIDE 0.9% 1,000 ML IV SCH ×3 (04:34→20:00)
[2020-07-10] MEDS: HYDROmorphone 1 MG/ML 1 ML SYRINGE IVP PRN ×5 (07:25→23:18)
[2020-07-10] MEDS: ALPRAZolam 1 MG TAB PO PRN ×3 (07:25→23:18)
--- NOTE | 2020-07-10 10:07 | US ---
EXAMINATION TYPE: US kidneys/renal and bladder DATE OF EXAM: 07/10/2020 COMPARISON: CT 2009 CLINICAL HISTORY: pyelonephritis. Abdomen pain EXAM MEASUREMENTS: Right Kidney: 11.2 x 4.5 x 4.5 cm Left Kidney: 10.6 x 4.7 x 5.2 cm Right Kidney: fullness of renal pelvis Left Kidney: No hydronephrosis or masses seen Bladder: wnl Bilateral Jets seen: no Normal Post Void Residual: no No nephrolithiasis. IMPRESSION: Mild right pelvocaliectasis with no evidence of renal calcifications
[2020-07-10] MEDS: CEFEPIME 2 GM in SODIUM CHLORIDE 0.9% 100 ML IVPB SCH ×2 (12:02→23:18)
--- NOTE | 2020-07-10 13:48 | PN ---
PROGRESS NOTE DATE OF SERVICE: 07/10/2020 CHIEF COMPLAINT: Right-sided abdominal flank pain, probably due to pyelonephritis. HISTORY OF PRESENT ILLNESS: This lady is still complaining of a lot of pain mostly in the right side of the abdomen. She is receiving a significant amount of narcotic analgesics. She denies diarrhea, melena, dysuria. PHYSICAL EXAMINATION: She is tender in the right upper and right lower quadrants. There are no definite masses. She does have guarding. She seems to have some mild tenderness throughout all 4 quadrants of the abdomen. Chest is clear. IMPRESSION: 1. Right-sided abdominal flank pain. 2. Probable pyelonephritis. PLAN: Repeat labs and continue to monitor vital signs. MMODL / IJN: [id number] /
--- NOTE | 2020-07-10 15:01 | HP ---
HISTORY AND PHYSICAL CHIEF COMPLAINT: Nausea and vomiting, right flank pain, fever, and probable urinary tract infection. HISTORY OF PRESENT ILLNESS: This is the first known admission for this 30-year-old white female. She presented to the emergency room with a 2-3 day history of nausea and vomiting, right flank pain, fever, chills, and urine consistent with bacterial infection. She is admitted with a diagnosis of pyelonephritis and possible sepsis. Blood pressure was 92. REVIEW OF SYSTEMS: She denies any headaches, neurologic problems, change in vision or the hearing, confusion, chest pain, shortness of breath, cough, hemoptysis, hypertension, murmurs, rheumatic fever, palpitations, abdominal pain, hematemesis, melena, hematochezia, jaundice, prior history of kidney disease, kidney stones, incontinence, or diabetes. Past medical history, family history, and personal and social histories reveal that she is not allergic to any medications. She has not been taking any. She has not been seen in the office since April of 2017. She does smoke. PHYSICAL EXAMINATION: Blood pressure is 92/35 with a pulse of 110, respirations of 40 and temperature of a 100.2. GENERAL: She appeared to be uncomfortable. Skin was hot and dry. Skin color is normal. Head, ears, head, ears, eyes, nose, mouth and throat were normal and neck veins are not distended. Thyroid was not enlarged. Chest is clear to auscultation and percussion. Cardiac exam demonstrated normal sinus rhythm. Abdomen was flat and she had generalized tenderness throughout, but more in the right upper and right lower quadrant than on the left. She had tenderness in the right flank. Extremities are normal. Neurologically, she is intact. She is admitted to the hospital with diagnoses: 1. Probable pyelonephritis. 2. Dehydration. 3. Rule out sepsis. 4. Hypotension. PLAN: 1. Bedrest. 2. IV fluids. 3. Appropriate cultures. 4. IV antibiotics. 5. Consult Infectious Disease. MMODL / IJN: [id number] /
[2020-07-10] MEDS: IOPAMIDOL CONTRAST (ORAL USE) VIAL PO PRN ×2 (16:03→16:52)
[2020-07-10 16:27] LABS: Basophils % (A) 0 %; Eosinophils # (A) 0.2 k/uL (0-0.7); Eosinophils % (A) 1 %; HCT 32.1 % (34.0-46.0); HGB 10.9 gm/dL (11.4-16.0); Lymphocytes # (A) 1.7 k/uL (1.0-4.8); Lymphocytes % (A) 9 %; MCH 34.2 pg (25.0-35.0); MCHC 33.9 g/dL (31.0-37.0); Mean Platelet Volume 7.9; Monocytes # (A) 1.3 k/uL (0-1.0); Monocytes % (A) 7 %; Neutrophils % (A) 83 %; Platelet Count 161 k/uL (150-450); RBC 3.18 m/uL (3.80-5.40); RDW 12.6 % (11.5-15.5); WBC 19.4 k/uL (3.8-10.6)
[2020-07-10 16:34] LABS: HCG,Qualitative Serum Not Detected
[2020-07-10 16:41] LABS: ALT 21 U/L (4-34); AST 25 U/L (14-36); African American GFR (CKD) >90 (>60 ml/min/1.73 sqM); Albumin 2.8 g/dL (3.5-5.0); Albumin/Globulin Ratio 1.3; Alkaline Phosphatase 89 U/L (38-126); Anion Gap 6 mmol/L; Blood Urea Nitrogen 14 mg/dL (7-17); Calcium 7.7 mg/dL (8.4-10.2); Carbon Dioxide 19 mmol/L (22-30); Chloride 111 mmol/L (98-107); Globulin 2.1 g/dL; Glucose 99 mg/dL (74-99); Non-African American GFR(CKD) >90 (>60 ml/min/1.73 sqM); Potassium 3.9 mmol/L (3.5-5.1); Sodium 136 mmol/L (137-145); Total Bilirubin 0.3 mg/dL (0.2-1.3); Total Protein 4.9 g/dL (6.3-8.2)
--- NOTE | 2020-07-10 18:19 | XR ---
EXAMINATION TYPE: XR chest 2V DATE OF EXAM: 07/10/2020 COMPARISON: Chest x-ray September 18, 2014 HISTORY: Fever. TECHNIQUE: Frontal and lateral views of the chest are obtained. FINDINGS: There is no new suspicious focal air space opacity, pleural effusion, or pneumothorax seen . The cardiac silhouette size remains within normal limits. The osseous structures are intact. IMPRESSION: No new acute infiltrate identified.
--- NOTE | 2020-07-10 19:45 | CT ---
EXAMINATION TYPE: CT abdomen pelvis w con DATE OF EXAM: 07/10/2020 HISTORY: Right sided abdominal/flank pain and fever. CT DLP: 348.9mGycm Automated Exposure Control for Dose Reduction was Utilized. CONTRAST: CT scan of the abdomen and pelvis is performed with IV Contrast, patient injected with 100ml mL of Is ovue 300. COMPARISON: Renal ultrasound earlier today. FINDINGS: LUNG BASES: No significant abnormality is appreciated. LIVER/GB: Some distended margins to gallbladder. No CT dense intraluminal gallstones. No biliary dila tation. PANCREAS: No significant abnormality is seen. SPLEEN: No significant abnormality is seen. ADRENALS: No significant abnormality is seen. KIDNEYS: Heterogeneous diminished enhancement with striation in the upper half of right kidney with a dditional small areas of involvement in the lower portion of right kidney. Findings consistent with r ight-sided pyelonephritis given symptoms of right flank pain and fever. There is no hydronephrosis se en bilaterally. BOWEL: Oral contrast reaches the level of cecum. Patient has very little intra-abdominal fat making e valuation suboptimal. No suspicious small or large bowel dilatation. UTERUS/ADNEXA: Anteverted uterus. Moderate free fluid in pelvis is nonspecific. Suspect corpus luteal cyst left ovary from recent ovulation. LYMPH NODES: No greater than 1cm abdominal or pelvic lymph nodes are appreciated. OSSEOUS STRUCTURES: No significant abnormality is seen. OTHER: No significant additional abnormality is seen. IMPRESSION: Findings consistent with right-sided acute pyelonephritis as detailed above.
--- NOTE | 2020-07-10 22:01 | CONS ---
CONSULTATION DATE OF SERVICE: 07/10/2020 REASON FOR CONSULTATION: Fever and pyelonephritis. HISTORY OF PRESENT ILLNESS: The patient is a 30-year-old female presenting to the ER at [facility] yesterday for evaluation of right-sided abdominal pain, mostly in the flank area. The patient's pain had been going on for the last few days. Denies any history of any trauma. The patient has been complaining of pain to be sharp, intensity almost 7 to 8 out of 10 and some radiation across the lower abdomen to the groin area. The patient was also complaining of burning and frequency of urine for the last 5 days and has been complaining of fever. With these symptoms, the patient was evaluated by the ER physician. On arrival in the ER, the patient did have a fever of 101. Subsequent she spiked a fever of 103 degrees Fahrenheit last night. The patient did have a white count of 20,000. Repeat is 19.4. Kidney function was normal. Liver enzymes: AST mildly elevated. Urine positive. Damon PCR was negative. The patient had an ultrasound of the abdomen that did not show any hydronephrosis. There was mild right pelvocaliectasis. She has been treated with Rocephin. With her fever, Infectious Disease was consulted for further management of antibiotic therapy. REVIEW OF SYSTEMS: Positive points have been mentioned in the HPI. Rest of the systems are negative. PAST MEDICAL HISTORY: Hyperlipidemia, right wrist fracture, anxiety, depression. PAST SURGICAL HISTORY: Wrist fracture repair. SOCIAL HISTORY: Current everyday smoker. Does drink and admitted to marijuana use. ALLERGIES: PROMETHAZINE. MEDICATIONS: The patient is currently on Tylenol, Xanax, Rocephin, Dilaudid, Toradol, Narcan, Zofran and IV fluid. PHYSICAL EXAMINATION: Blood pressure 99/67, pulse of 83, temperature 90, T-max 101. She is 100% on room air. General description is a middle-aged female lying in bed in no distress. No tachypnea or accessory muscle of respiration use. HEENT: Examination shows no pallor or scleral icterus. Oral mucous membrane is dry. NECK: Trachea is central. No thyromegaly. LUNGS: Unlabored breathing. Decreased breath sounds at the base. No wheeze or crackle. HEART: S1, S2. Regular rate and rhythm. ABDOMEN: Soft. Tenderness in the right flank area. Some tenderness in the right upper quadrant. EXTREMITIES: No edema of the feet. SKIN EXAMINATION: No rash or mass palpable. Neurologically the patient is awake, alert, oriented x3. Mood and affect normal. LABS: Hemoglobin is 10.9, white count 19.4. Admission white count was 20,000. BUN of 14, creatinine 0.59. Liver enzymes are normal. Urine HCG was negative. Damon PCR negative. Urine is positive. DIAGNOSTIC IMPRESSION AND PLAN: Patient presented to hospital with sepsis in this patient who did have a fever, elevated white count, significantly positive UA. Likely source is right-sided pyelonephritis, likely from enteric Gram-negative pathogen. PLAN: 1. We will switch her antibiotic therapy to cefepime 2 grams q.12; to continue while waiting for the culture to finalize. 2. IV fluid. 3. Await CT of abdomen and pelvis. 4. Will follow clinical condition and culture to further adjust medication if needed. Thank you for this consultation. Will follow this patient along with you. MMODL / IJN: [id number] /
[2020-07-11] MEDS: SODIUM CHLORIDE 0.9% 1,000 ML IV SCH ×3 (03:18→19:28)
[2020-07-11] MEDS: HYDROmorphone 1 MG/ML 1 ML SYRINGE IVP PRN ×5 (03:27→22:14)
[2020-07-11] MEDS: KETOROLAC 15 MG/ML 1 ML VIAL IVP PRN ×3 (03:29→19:34)
[2020-07-11] MEDS: ACETAMINOPHEN TAB 325 MG TAB PO PRN ×3 (09:10→22:27)
[2020-07-11] MEDS: ALPRAZolam 1 MG TAB PO PRN ×3 (09:10→22:28)
[2020-07-11] MEDS: CEFEPIME 2 GM in SODIUM CHLORIDE 0.9% 100 ML IVPB SCH (11:45)
[2020-07-11 16:46] LABS: Basophils % (A) 0 %; Eosinophils # (A) 0.2 k/uL (0-0.7); Eosinophils % (A) 1 %; HCT 31.4 % (34.0-46.0); HGB 10.7 gm/dL (11.4-16.0); Lymphocytes # (A) 1.5 k/uL (1.0-4.8); Lymphocytes % (A) 12 %; MCH 33.9 pg (25.0-35.0); MCHC 33.9 g/dL (31.0-37.0); MCV 100.1 fL (80.0-100.0); Mean Platelet Volume 7.9; Monocytes # (A) 0.9 k/uL (0-1.0); Monocytes % (A) 7 %; Neutrophils # (A) 9.9 k/uL (1.3-7.7); Neutrophils % (A) 78 %; Platelet Count 178 k/uL (150-450); RBC 3.14 m/uL (3.80-5.40); RDW 12.6 % (11.5-15.5); WBC 12.6 k/uL (3.8-10.6)
[2020-07-11 16:52] LABS: ALT 21 U/L (4-34); AST 20 U/L (14-36); African American GFR (CKD) >90 (>60 ml/min/1.73 sqM); Albumin 2.7 g/dL (3.5-5.0); Albumin/Globulin Ratio 1.2; Alkaline Phosphatase 102 U/L (38-126); Anion Gap 6 mmol/L; Blood Urea Nitrogen 9 mg/dL (7-17); Carbon Dioxide 20 mmol/L (22-30); Chloride 109 mmol/L (98-107); Globulin 2.2 g/dL; Glucose 90 mg/dL (74-99); Non-African American GFR(CKD) >90 (>60 ml/min/1.73 sqM); Potassium 3.5 mmol/L (3.5-5.1); Sodium 135 mmol/L (137-145); Total Bilirubin 0.3 mg/dL (0.2-1.3); Total Protein 4.9 g/dL (6.3-8.2)
[2020-07-11] MEDS: CITALOPRAM HYDROBROMIDE 20 MG TAB PO SCH (17:31)
--- NOTE | 2020-07-11 17:42 | PN ---
PROGRESS NOTE DATE OF SERVICE: 07/11/2020 REASON FOR FOLLOWUP: Right-sided pyelonephritis. INTERVAL HISTORY: The patient is currently afebrile. The patient is breathing comfortably. The patient denies having any chest pain or shortness of breath or cough. No nausea, no vomiting, no abdominal pain or diarrhea. PHYSICAL EXAMINATION: Blood pressure 122/80 with a pulse of 90, temperature 98.2. She is 99% on room air. General description is a middle-aged female lying in bed in no distress. RESPIRATORY SYSTEM: Unlabored breathing. Clear to auscultation anteriorly. HEART: S1, S2. Regular rate and rhythm. ABDOMEN: Soft. No tenderness. LABS: White count is still elevated at 19. Blood culture with coagulase-negative Staph. DIAGNOSTIC IMPRESSION AND PLAN: 1. Patient with Escherichia coli right-sided pyelonephritis, antibiotic adjusted to Rocephin. Ultrasound was negative for any structural abnormality. 2. Positive blood culture with staph epi likely skin contaminant. No need for further workup. Repeat blood culture negative so far. MMODL / IJN: [id number] / MTDD
[2020-07-11] MEDS: lamoTRIgine 100 MG TAB PO SCH (19:33)
[2020-07-11] MEDS: ALPRAZolam 0.5 MG TAB PO SCH (19:34)
[2020-07-12] MEDS: SODIUM CHLORIDE 0.9% 1,000 ML IV SCH ×4 (01:13→22:40)
[2020-07-12] MEDS: KETOROLAC 15 MG/ML 1 ML VIAL IVP PRN ×2 (01:31→08:02)
[2020-07-12] MEDS: HYDROmorphone 1 MG/ML 1 ML SYRINGE IVP PRN ×4 (01:33→12:55)
[2020-07-12] MEDS: ALPRAZolam 1 MG TAB PO PRN ×2 (07:51→15:52)
[2020-07-12] MEDS: ACETAMINOPHEN TAB 325 MG TAB PO PRN ×3 (08:00→22:26)
[2020-07-12] MEDS: CITALOPRAM HYDROBROMIDE 20 MG TAB PO SCH (08:21)
[2020-07-12 11:49] VITALS: RESP 16
[2020-07-12] MEDS: ALPRAZolam 0.5 MG TAB PO SCH ×2 (13:51→22:26)
--- NOTE | 2020-07-12 16:24 | PN ---
PROGRESS NOTE DATE OF SERVICE: 07/12/2020 CHIEF COMPLAINT: Pyelonephritis. HISTORY OF PRESENT ILLNESS: This lady is doing a bit better. The back pain is nearly gone. She still has some abdominal pain, but it is receding. Temperature is still up. PHYSICAL EXAMINATION: Chest is clear. Cardiac exam is normal. The abdomen is a little bit less tender on the right upper and right lower quadrants. Bowel sounds are present. IMPRESSION: Probable pyelonephritis. PLAN: 1. Continue with IV fluids and antibiotics. 2. Change her analgesic program. MMODL / IJN: [id number] /
--- NOTE | 2020-07-12 16:34 | PN ---
PROGRESS NOTE DATE OF SERVICE: 07/11/2020 CHIEF COMPLAINT: Pyelonephritis. HISTORY OF PRESENT ILLNESS: This lady is slowly improving. She is still running temperatures. Her pain is improving. PHYSICAL EXAMINATION: CHEST is clear. CARDIAC exam is normal. ABDOMEN: Soft, and she is crucible furnace tender in the right upper and right lower quadrants without any masses. There is less tenderness and no rebound. IMPRESSION: Pyelonephritis. PLAN: Continue with IV fluids and follow labs. MMODL / IJN: [id number] /
[2020-07-12] MEDS: HYDROcodone/APAP 5-325MG 1 EACH TAB PO PRN ×2 (17:07→22:27)
[2020-07-12] MEDS: lamoTRIgine 100 MG TAB PO SCH (21:06)
--- NOTE | 2020-07-12 23:18 | PN ---
PROGRESS NOTE R3 ALWAYS HANGES HIS SHOTS!: 07/12/2020 REASON FOR FOLLOWUP: E coli right-sided pyelonephritis. INTERVAL HISTORY: Patient is currently afebrile. Patient is breathing comfortably. The patient denies having any chest pain or shortness of breath or cough. The right flank pain has improved. No nausea, no vomiting. No diarrhea. PHYSICAL EXAMINATION: Blood pressure 111/69, pulse of 72, temperature 98.6. She is 98% on room air. GENERAL description is a middle-aged female lying in bed in no distress respiratory system: Unlabored breathing clear to auscultation anteriorly heart S1, S2. Regular rate and rhythm. ABDOMEN: Soft, no new. LABS: No new labs have been obtained today. Repeat blood culture has been negative. DIAGNOSTIC IMPRESSION AND PLAN: Patient with E coli right-sided pyelonephritis. Patient clinically responded to Rocephin to continue finishing therapy with oral Ceftin. Repeat labs tomorrow. Continue supportive care. MMODL / IJN: [id number] /
[2020-07-13] MEDS: ALPRAZolam 1 MG TAB PO PRN ×3 (06:04→20:08)
[2020-07-13 06:17] LABS: Basophils % (A) 0 %; Eosinophils # (A) 0.3 k/uL (0-0.7); Eosinophils % (A) 5 %; HCT 32.9 % (34.0-46.0); HGB 10.9 gm/dL (11.4-16.0); Lymphocytes # (A) 1.4 k/uL (1.0-4.8); Lymphocytes % (A) 21 %; MCH 32.9 pg (25.0-35.0); MCHC 33.1 g/dL (31.0-37.0); MCV 99.4 fL (80.0-100.0); Mean Platelet Volume 7.5; Monocytes # (A) 0.6 k/uL (0-1.0); Monocytes % (A) 9 %; Neutrophils # (A) 4.1 k/uL (1.3-7.7); Neutrophils % (A) 62 %; Platelet Count 228 k/uL (150-450); RBC 3.31 m/uL (3.80-5.40); RDW 12.6 % (11.5-15.5); WBC 6.6 k/uL (3.8-10.6)
[2020-07-13 06:34] LABS: African American GFR (CKD) >90 (>60 ml/min/1.73 sqM); Anion Gap 7 mmol/L; Blood Urea Nitrogen 3 mg/dL (7-17); Calcium 8.2 mg/dL (8.4-10.2); Carbon Dioxide 23 mmol/L (22-30); Chloride 110 mmol/L (98-107); Glucose 91 mg/dL (74-99); Non-African American GFR(CKD) >90 (>60 ml/min/1.73 sqM); Potassium 3.5 mmol/L (3.5-5.1); Sodium 140 mmol/L (137-145)
[2020-07-13 06:50] LABS: C Reactive Protein 132.3 mg/L (<10.0)
[2020-07-13 08:42] VITALS: TEMP 98.3
[2020-07-13] MEDS: ACETAMINOPHEN TAB 325 MG TAB PO PRN ×3 (08:43→20:58)
[2020-07-13] MEDS: HYDROcodone/APAP 5-325MG 1 EACH TAB PO PRN ×3 (08:44→20:56)
[2020-07-13] MEDS: CITALOPRAM HYDROBROMIDE 20 MG TAB PO SCH (08:47)
[2020-07-13 12:07] VITALS: BP 132/84; PULSE 73
[2020-07-13] MEDS: ALPRAZolam 0.5 MG TAB PO SCH (12:08)
--- NOTE | 2020-07-13 18:15 | PN ---
PROGRESS NOTE DATE OF SERVICE: 07/13/2020. REASON FOR FOLLOWUP: E coli right-sided pyelonephritis. INTERVAL HISTORY: The patient is currently afebrile. He did have a low-grade fever last night of 100.8. Afebrile since then. Patient is feeling better. The right flank pain has improved. No chest pain, shortness of breath or cough. No abdominal pain or diarrhea. PHYSICAL EXAMINATION: Blood pressure 132/84, pulse of 73, temperature 98.3. She is 99% on room air. General description: The patient is a middle-aged female up in the room in no distress. Respiratory system: Unlabored breathing, clear to auscultation anteriorly. Heart S1, S2. Regular rate and rhythm. Abdomen soft, no tenderness. LABS: White count normal 6.6. DIAGNOSTIC IMPRESSION AND PLAN: Patient with E coli right-sided pyelonephritis. Overall improvement on Rocephin. Finish therapy with oral Ceftin, Cipro could not be used. The patient is on SSRI and close outpatient followup. All questions and concerns were answered. Prescription was sent to the pharmacy. MMNUBIAL / IJN: [id number] /
--- NOTE | 2020-07-14 19:57 | DS ---
DISCHARGE SUMMARY DATE OF SERVICE: 07/13/2020 CHIEF COMPLAINT: Fever, leukocytosis and right-sided pyelonephritis. HISTORY OF PRESENT ILLNESS AND PHYSICAL EXAMINATION: Details of this lady's history and physical can be found in the initial workup. LABORATORY STUDIES: While she was in the hospital she had laboratory studies, details of which can be found in the laboratory section of her chart. COURSE IN THE HOSPITAL: After admission she was placed on bedrest, started on intravenous fluids and IV antibiotics. She was seen and followed by Infectious Disease. Her temperature stayed up for several days and her pain slowly improved. She was doing well enough that it was felt that she could be discharged on July 13. She will go home on Ceftin and will be followed up in a day or two through the office. FINAL DIAGNOSIS: Right-sided pyelonephritis. OPERATIONS: None. CONSULTATION: Infectious Disease. She is improved. MMODL / NABILN: [id number] /
--- NOTE | 2020-07-15 14:50 | CDI ---
Documentation Clarification Form Date: 07/15/2020 02:48:00 PM From: Dominga Childs CCS Admit Date: 07/11/2020 11:30:00 AM Patient Name: Eveline Freitas Visit Number: [id number] Discharge Date: 07/13/2020 09:18:00 PM ATTENTION: The Clinical Documentation Specialists (CDI) and [facility] Coding Staff appreciate your assistance in clarifying documentation. Please respond to the clarification below the line at the bottom and electronically sign. The CDI & [facility] Coding staff will review the response and follow-up if needed. Please note: Queries are made part of the Legal Health Record. If you have any questions, please contact the author of this message via ITS. Dr. Tae Dial The diagnosis sepsis was documented in the H&P, Consult and ED, but is not noted in subsequent documentation. H&P documents: She is admitted with a diagnosis of pyelonephritis and possible sepsis. Consult documents: Patient presented to hospital with sepsis in this patient who did have a fever, elevated white count, significantly positive UA. Likely source is right-sided pyelonephritis, likely from enteric Gram-negative pathogen. 07/11 Progress Note documents: Positive blood culture with likely skin contaminant.No need for further workup.Repeat blood culture negative so far. History/Risk Factors: Pyelonephritis, Dehydration, Tobacco, Depression Clinical Indicators: Temp, Tachycardia, Hypotension Vitals: BP 90/54, MI 142, RR 18, Temp 100.3, O2 Sat 100 Labs: WBC 20, 19, 12- Lactic Acid 1.1, 0.6 Treatment: Maxipime 2 gm IV, Rocephin 1 gm IV Please clarify if the sepsis was Present/active this admission Treated and resolved this admission Ruled out Other, please specify Clinically unable to determine MTDD
--- NOTE | 2020-07-16 11:04 | MISC ---
MISCELLANOUS REPORT QUERY: Sepsis present and active on admission. MMODL / IJN: [id number] /
== END 2020-07-13 21:18 | disposition home or self-care (01) | DRG 872 ==
LOC: EC 10:05 → 6NMEDSUR 12:20 → OBSVTOIN 07-11 11:30 → 6PED 07-12 07:10
PROVIDERS: ADMIT Family Medicine; ATTEND Family Medicine
DX: A41.51 Sepsis due to Escherichia coli [E. coli] (principal); N10 Acute pyelonephritis; I95.9 Hypotension, unspecified; Z20.822 Contact with and (suspected) exposure to COVID-19; E78.5 Hyperlipidemia, unspecified; F41.9 Anxiety disorder, unspecified; F32.9 Major depressive disorder, single episode, unspecified; F17.200 Nicotine dependence, unspecified, uncomplicated; E86.0 Dehydration; R00.0 Tachycardia, unspecified; Z79.899 Other long term (current) drug therapy; Z98.890 Other specified postprocedural states; Z87.81 Personal history of (healed) traumatic fracture; Z88.8 Allergy status to other drugs, medicaments and biological substances
CPT/HCPCS: 36415; 71046; 74177; 76770; 80048; 80053; 81001; 81025; 83605; 83690; 84703; 85025; 86140; 87040; 87077; 87086; 87186; 87635; 96361; 96365; 96375; 96376; 99284